=== PATIENT | female | born 1960 | race Caucasian/White ===

== ENCOUNTER 2024-11-11 05:36 | Observation (INO) | payer MEDICARE, MEDICAID ==
[2024-11-08 11:45] LABS: BASOPHILS % (AUTO) 0.5 % (0-1); EOSINOPHILS # (AUTO) 0.1 X10'3 (0-0.9); EOSINOPHILS % (AUTO) 2.4 % (0-6); LYMPHOCYTES # (AUTO) 1.7 X10'3 (1.1-4.8); LYMPHOCYTES % (AUTO) 34.1 % (21-51); MEAN CORPUSCULAR HEMOGLOBIN 33.9 PG (27.0-31.0); MEAN CORPUSCULAR HGB CONC 34.4 g/dL (33.0-36.5); MEAN CORPUSCULAR VOLUME 98.5 FL (78-98); MEAN PLATELET VOLUME 8.6 FL (7.4-10.4); MONOCYTES # (AUTO) 0.5 X10'3 (0-0.9); MONOCYTES % (AUTO) 9.2 % (2-12); NEUTROPHILS # (AUTO) 2.7 X10'3 (1.8-7.7); NEUTROPHILS % (AUTO) 53.8 % (42-75); PRE OP HEMATOCRIT 42.3 % (35.0-45.0); PRE OP HEMOGLOBIN 14.6 g/dL (12.0-16.0); PRE OP PLATELET COUNT 195 X10'3 (140-440); PRE OP WHITE BLOOD COUNT 4.9 10'3 (4.8-10.8); RED CELL DISTRIBUTION WIDTH 13.6 % (11.5-14.5)
[2024-11-08 11:50] LABS: PRE OP PROTIME 10.6 SECONDS (9.0-12.0)
[2024-11-08 12:08] LABS: ALBUMIN 4.2 G/DL (3.4-5.0); ALBUMIN/GLOBULIN RATIO 1.2 (1.1-1.5); ALKALINE PHOSPHATASE 105 IU/L (46-116); BLOOD UREA NITROGEN 16 MG/DL (7-18); BUN/CREATININE RATIO 20.5 (10.0-20.0); CALCIUM 9.2 MG/DL (8.5-10.1); CHLORIDE 108 MMOL/L (99-107); CREATININE 0.78 MG/DL (0.40-0.90); PRE OP ALT 78 U/L (30-65); PRE OP ANION GAP 12 (8-16); PRE OP AST 70 U/L (10-37); PRE OP BILIRUB, TOTAL 0.8 MG/DL (0.0-1.0); PRE OP GLUCOSE 95 MG/DL (70-104); PRE OP POTASSIUM 4.2 MMOL/L (3.4-5.1); PRE OP SODIUM 146 MMOL/L (135-145); TOTAL CARBON DIOXIDE 26.3 MMOL/L (24-32); TOTAL PROTEIN 7.8 G/DL (6.4-8.2); eGFR 74 ML/MIN
[2024-11-08 12:14] LABS: BILIRUBIN,URINE NEGATIVE (Neg); COLOR,URINE YELLOW (Yellow); GLUCOSE, URINE NEGATIVE (Neg); KETONES,URINE NEGATIVE (Neg); LEUKOCYTE ESTERASE ,URINE NEGATIVE (Neg); NITRITES, URINE NEGATIVE (Neg); OCCULT BLOOD,URINE NEGATIVE (Neg); PROTEIN,URINE NEGATIVE (Neg); UROBILINOGEN,URINE 0.2 E.U/dL (0.2-1.0)
[2024-11-08 12:33] LABS: UA COLLECTION TYPE CLN CATCH MIDSTREAM
[2024-11-08 12:34] LABS: CLARITY,URINE SLIGHTLY CLOUDY (Clear)
[2024-11-08 12:37] LABS: MUCUS STRANDS FEW /LPF (Neg); SQUAMOUS EPITHELIAL CELL,UR MODERATE /LPF (FEW)
[2024-11-08 12:38] LABS: BACTERIA,URINE FEW /HPF (Neg); RBC,URINE NONE SEEN /HPF (0-2); TRANSITIONAL EPI CELLS,URINE FEW /HPF; WBC,URINE NONE SEEN /HPF (0-4)
--- NOTE | 2024-11-08 13:33 | RADIOLOGY REPORT ---
DI CHEST,TWO VIEWS CLINICAL HISTORY: PREOP COMPARISON: None TECHNIQUE: Frontal and lateral view of the chest was obtained FINDINGS: Lines and Tubes: None Lungs: No focal consolidation. Pleura: No effusion. No pneumothorax. Cardiomediastinal contours: Unremarkable Bones: No acute osseous abnormality. IMPRESSION: No acute cardiopulmonary disease.
[2024-11-11] VITALS (26 sets, daily range): BP systolic 105–145; BP diastolic 54–86; PULSE 63–94; RESP 11–17; TEMP 97.2–97.4; O2SAT 89–97
[~2024-11-11] VITALS: Ht 157.5 cm; Wt 68.0 kg
[~2024-11-11 05:36] MED LIST: ALBU8HFA INH; ATOR20TA PO; DULO-31 PO; FENO145T38 PO; FOLI1TAB27 PO; MAGN200T5 PO; MELO-102 PO; METO-384 PO; MULT-1249 PO; OLAN20TA81 PO; OMEG-15 PO; ROPI2TAB53 PO
[2024-11-11] MEDS: ceFAZolin 2gm/dext,iso 50mL 50 ML IV ONE (05:51)
[2024-11-11] MEDS: DOCUMENT DATE & TIME OF BETA-BLOCKER PO ONE (05:51)
[2024-11-11] MEDS ORDERED: gelatin sponge, absorbable (Gelfoam 100) sponge TP ONE (07:05)
[2024-11-11] MEDS ORDERED: vancomycin 1,000mg inj ONE (07:05)
[2024-11-11] MEDS ORDERED: cloNIDine hcl/PF 100mcg/ml inj ONE (07:09)
[2024-11-11] MEDS ORDERED: fentaNYL/PF 50MCG/1 ML 2ML syringe ONE (07:12)
[2024-11-11] MEDS ORDERED: HYDROcodone/acetaminophen 5mg/325mg tablet PO PRN (07:15)
[2024-11-11] MEDS ORDERED: naloxone 0.4 mg/ml inj IV PRN (07:15)
[2024-11-11] MEDS ORDERED: acetaminophen 325mg tablet PO PRN (07:15)
[2024-11-11] MEDS ORDERED: magnesium hydroxide 30ml (MOM) UD suspension PO PRN (07:15)
[2024-11-11] MEDS ORDERED: PCA WASTE DOCUMENTATION 1 MG ML MC SCH (07:15)
[2024-11-11] MEDS ORDERED: diphenhydrAMINE 25mg capsule PO PRN (07:15)
[2024-11-11] MEDS ORDERED: ondansetron/PF 4mg/2ml inj IV PRN ×2 (07:15→09:35)
[2024-11-11] MEDS ORDERED: bisacodyl 10mg suppository rectal RC PRN (07:15)
[2024-11-11] MEDS ORDERED: dexamethasone sod phosphate 4mg/ml inj. ONE (07:53)
[2024-11-11] MEDS ORDERED: rocuronium 10mg/ml inj IV ONE (07:53)
[2024-11-11] MEDS ORDERED: ondansetron/PF 4mg/2ml inj ONE (07:53)
[2024-11-11] MEDS ORDERED: LIDOcaine 2% (20mg/ml) 5ml vial ONE (07:53)
[2024-11-11] MEDS ORDERED: ROPIVAcaine 0.5% (5mg/ml) 30ml vial ONE (07:53)
[2024-11-11] MEDS ORDERED: LIDOcaine 1%/PF 5ML 10 MG/ML VIAL ONE (07:53)
[2024-11-11] MEDS ORDERED: propofol inj 20 ML IV ONE (07:53)
[2024-11-11] MEDS ORDERED: midazolam 1 mg/ML 2ml injection ONE (07:53)
[2024-11-11] MEDS ORDERED: sevoflurane 250ml liquid IH ONE (07:54)
[2024-11-11] MEDS ORDERED: tranexamic acid 100mg/ml inj. ONE (07:56)
[2024-11-11] MEDS ORDERED: tranexamic acid inj. 1,000 MG in normal saline 100ml IV soln 90 ML IV ONE (08:00)
[2024-11-11] MEDS ORDERED: ePHEDrine 50MG/ML INJ. ONE (08:13)
[2024-11-11] MEDS ORDERED: hydrALAZINE 20mg/ml inj. IV PRN (09:35)
[2024-11-11] MEDS ORDERED: morphine 4 MG/ML inj SYRINge IV PRN (09:35)
[2024-11-11] MEDS ORDERED: proCHLORperazine 10 MG/2 ml inj IV PRN (09:35)
[2024-11-11] MEDS ORDERED: meperidine/PF 25mg/ml syringe IV PRN (09:35)
[2024-11-11] MEDS ORDERED: labetalol 20mg/4ml (5mg/ml) syringe IV PRN (09:35)
[2024-11-11] MEDS ORDERED: morphine 2 MG/ML inj. syringe IV PRN (09:35)
[2024-11-11] MEDS ORDERED: HYDROmorphone/PF 0.2 MG/ML SYRINGE IV PRN ×2 (09:35)
[2024-11-11] MEDS ORDERED: ringers solution, lacted 1,000 ML IV SCH (09:35)
[2024-11-11] MEDS: ipratropium/albuterol 3ml nebule IH ONE (09:55)
[2024-11-11] MEDS: acetaminophen 1,000mg/100ml IV 100 ML IV PRN (10:09)
--- NOTE | 2024-11-11 10:51 | RADIOLOGY REPORT ---
EXAM: DI SHOULDER, COMPLETE (MIN 2 VWS) CLINICAL INDICATION: post op TECHNIQUE: DI SHOULDER, COMPLETE (MIN 2 VWS) Comparison: None FINDINGS/IMPRESSION: There is no evidence of acute fracture or dislocation. Chronic right lateral 6th rib fracture. Right total shoulder arthroplasty. The alignment is anatomical. There is no radiopaque foreign body.
[2024-11-11] MEDS: tranexamic acid 1gm/0.7% sal. 100 ML IV ONE (12:00)
[2024-11-11] MEDS: ringers solution, lacted 1,000 ML IV SCH (12:00)
[2024-11-11] MEDS: famotidine 20mg tablet PO ONE (12:00)
[2024-11-11] MEDS ORDERED: ceFAZolin/D5W- 1GM premix 50 ML IV SCH (16:00)
--- NOTE | 2024-11-11 16:23 | OPERATIVE REPORT ---
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 Intact rotator cuff. Complications None Prosthetics\Implants used: Shoulder innovations size six inset 70 stem with a +0 tray and +0 polyethylene liner. A 33 diameter, plus three lateralized glenosphere was used. A 10 degree superiorly augmented base plate was used. Estimated Blood Loss: 100 cc Specimen Removed: Right humeral head Description of Procedure: Patient is brought to the operating. Placed in a supine position. Preoperative antibiotics of 2 g of Ancef and 1 g of TXA was given. General plus regional anesthesia was performed including a interscalene block. This was performed of the right shoulder. Patient was then positioned in a modified beach chair position. Bony prominences were well padded. Bilateral lower extremity SCDs were placed. The right upper extremity was prepped and draped in the usual sterile fashion. A time-out procedure was performed as per routine identifying the patient, site to be operated on, and procedure to be performed. Dr. Adan Piedra animal assistant on this surgery. Doctor Piedra is a animal assistant that I used frequently and he is very aware of my dissection techniques. His assistance with humeral exposure allowed for proper preparation and instrumentation. More importantly, he is very familiar with my glenoid retractor placement and this allowed excellent visualization of the glenoid. This helps with proper implant placement and also helps minimize complications. Lastly, he is very familiar with my subscapularis repair technique which requires multiple sutures to be passed in a certain order. I began with the right shoulder deltopectoral incision. Cephalic vein was identified and taken laterally with the deltoid. I developed the deltopectoral interval and subdeltoid space. Retractors were placed under the deltoid for excellent exposure of the proximal humerus. I identified the long head of the biceps and I tenodesed it to the upper border of the pectoralis major. I then resected the proximal portion of the biceps. Blunt dissection was performed under the conjoined tendon. A retractor was carefully placed after palpating the axillary nerve. Sutures were placed in the subscapularis and a subscapularis peel was performed. With progressive release of the inferior caps ule, I was able to dislocate the proximal humerus into the deltopectoral interval. Marginal osteophytes were identified and resected using a rongeur and osteotomes. I then identified the capsular reflexion. This was marked. I then made an anatomic neck cut at 132.5 of neck shaft inclination and approximately 20 of retroversion. Posterior osteophytes were removed. I then sounded the humeral canal up to a size 10. I then selected a size four broach which was too small. I went up to a size six broach for the inset 70 system. This fit fairly well. I then reamed for the humeral tray and placed a cut protector. I then moved onto the glenoid. A 360 degree soft tissue release was performed around the glenoid. This allowed me to resect glenoid labrum and residual biceps anchor. With careful dissection, I stayed directly on bone to minimize neurovascular injury. I then was able to place all my retractors directly on bone for excellent visualization. Care was taken to protect the neurovascular structures anteriorly and the axillary nerve inferiorly. Once I had good visualization, I referenced my 3D preoperative plan. Patient had about a 11 degree superior inclination deformity. So I used a 10 degree superior augment and tilted my hand down slightly. I did not correct much of her retroversion. I then placed my guide pin bicortically. Fluoroscopy was used to confirm good position of the guide pin. I then reamed for a 10 degree superiorly augmented base plate with the maximum correction essentially at about the 11:30 position. I then drilled for the center post. I then impacted a 10 degree superiorly augmented base plate with the maximum correction at about the 11:30 position. The base plate seated firmly. I then drilled for the center compression screw with excellent purchase. I placed three peripheral locking screws. The base plate was very stable. I then used a 33 diameter peripheral Reamer. Once this was done, I irrigated with IrriSept. I dried the Abdullahi taper. According to my 3D preope rative plan, I placed a 33 diameter, plus three lateralized glenosphere by impacting the taper, testing the taper, and then re impacting the taper. I then moved back to the humerus. A +0 tray was placed along with a +0 trial liner. Shoulder was reduced with a excellent positive reduction feel. No dislocation with a lateral Shuck maneuver. Stable range of motion was internal rotation to the belly, external rotation easily to 70 or 80, easy overhead motion. Abduction external rotation to about 100 and abduction internal rotation to 45. Dislocation required some effort. So I felt comfortable with this construct. Shoulder was irrigated with IrriSept. I then placed four suture tapes adjacent to the lesser tuberosity for my later subscapularis repair. Definitive implant was opened which was an inset 70 stem, size six. With a +0 humeral tray and +0 humeral liner. This was assembled on the back table in standard fashion. Once it was ready, I inserted the stem. I impacted it. It sat firmly. It was very stable with both axial and rotational stress. Shoulder was reduced with the same reduction feel. Final fluoroscopy images were taken and saved. I was happy with the construct. I then reduced the subscapularis and a double row subscapularis repair was performed. It was very stable. An axillary nerve tug test was performed and it was intact. I then irrigated the shoulder with IrriSept and then 3 L of pulse lavage irrigation. 1 g of vancomycin powder was placed adjacent to the implant. I then closed the deltopectoral interval with FiberWire suture. Deep layers were closed with 0 Vicryl suture, subcutaneous layers were closed with 2-0 Vicryl suture and skin was closed with 3-0 Stratafix suture. Final sponge and needle counts were correct. Wound was sealed with Dermabond. Sterile dressings were applied. Arm was protected in an shoulder abduction orthosis which was fit in the operating room. This was placed for the patient's proper safety and recovery after surgery and to help minimize complications. Patient was then sent to recovery in stable condition. Counts repoted as correct: Yes X-Ray findings: No Foreign body JULIÁN MCCURDY MD Nov 11, 2024 16:22
[2024-11-11] MEDS: potassium cl 20mEq in 1/2 NS 1,000 ML IV SCH (17:15)
[2024-11-11] MEDS: ceFAZolin/D5W- 1GM premix 50 ML IV SCH (19:07)
[2024-11-11] MEDS ORDERED: albuterol 2.5 MG/3 ML nebule NEB PRN (20:35)
[2024-11-11] MEDS: ROPINIRole 1mg tablet PO SCH (21:35)
[2024-11-11] MEDS: olanzapine 10mg tablet PO SCH (21:35)
[2024-11-12 05:30] LABS: ALANINE AMINOTRANSFERASE 59 U/L (12-78); ALBUMIN 3.1 G/DL (3.4-5.0); ALBUMIN/GLOBULIN RATIO 0.9 (1.1-1.5); ALKALINE PHOSPHATASE 76 IU/L (46-116); ANION GAP 9 (8-16); BILIRUBIN,TOTAL 0.4 MG/DL (0.1-1.0); BLOOD UREA NITROGEN 12 MG/DL (7-18); BUN/CREATININE RATIO 13.6 (10.0-20.0); CALCIUM 8.4 MG/DL (8.5-10.1); CHLORIDE 111 MMOL/L (99-107); CREATININE 0.88 MG/DL (0.40-0.90); GLUCOSE 124 MG/DL (70-104); SODIUM 144 MMOL/L (135-145); TOTAL CARBON DIOXIDE 23.9 MMOL/L (24-32); TOTAL PROTEIN 6.5 G/DL (6.4-8.2); eCRCL 51 ML/MIN; eGFR 65 ML/MIN
[2024-11-12 05:39] LABS: ASPARTATE AMINO TRANSFERASE 54 U/L (10-37); POTASSIUM 4.8 MMOL/L (3.5-5.1)
[2024-11-12 06:00] VITALS: BP 120/67; PULSE 74; RESP 16; TEMP 96.8; O2SAT 91
[2024-11-12 07:17] LABS: BASOPHILS % (AUTO) 0.2 % (0-1); EOSINOPHILS % (AUTO) 0 % (0-6); HEMOGLOBIN 12.7 g/dl (12.0-16.0); LYMPHOCYTES # (AUTO) 1.3 X10'3 (1.1-4.8); LYMPHOCYTES % (AUTO) 12.1 % (21-51); MEAN CORPUSCULAR HEMOGLOBIN 34.2 PG (27.0-31.0); MEAN CORPUSCULAR HGB CONC 34.3 g/dL (33.0-36.5); MEAN CORPUSCULAR VOLUME 99.8 FL (78-98); MEAN PLATELET VOLUME 9.1 FL (7.4-10.4); MONOCYTES # (AUTO) 0.8 X10'3 (0-0.9); MONOCYTES % (AUTO) 7.8 % (2-12); NEUTROPHILS # (AUTO) 8.4 X10'3 (1.8-7.7); NEUTROPHILS % (AUTO) 79.9 % (42-75); PLATELET COUNT 167 X10'3 (140-440); RED BLOOD COUNT 3.71 X10'6 (4.20-5.60); RED CELL DISTRIBUTION WIDTH 13.7 % (11.5-14.5); WHITE BLOOD COUNT 10.4 X10'3 (4.5-11.0)
--- NOTE | 2024-11-12 07:22 | PROGRESS NOTE ---
Progress Note Orthopedic Ortho Post Op Day #: 1 Follow Up Progress Note Postoperative day 1. Status post right reverse total shoulder arthroplasty and biceps tenodesis Central Line/PICC still needed: N\A Adler Catheter still needed?: N\A Subjective Patient states her right shoulder pain is reasonably controlled. No overnight issues. Objective Vital Signs Date Time Temp Pulse Resp B/P (MAP) Pulse Ox O2 Delivery O2 Flow Rate FiO2 11/11/24 20:00 Nasal Cannula 2.0 11/11/24 15:45 78 123/68 (86) 90 11/11/24 12:00 97.4 13 32 Result Diagram: 11/08/24 1125 11/12/24 0455 Alert and Oreinted x4, Appropriate, Vital signs are stable Objective Examination of the right shoulder shows no deformity. Dressings are intact. No strike through. Axillary nerve is intact to light touch. 2+ radial pulse. Her median, radial, and ulnar nerve motor and sensory functions are completely intact with specific testing. Sling is in place. Lab Results comments Patient's complete metabolic profile is acceptable for postoperative day 1. Her morning CBC is still pending. Other Results Postoperative x-rays were reviewed. No visible complications. No fractures or dislocations. Joint alignment and implant alignment all look good. Problem/Assessment/Plan Assessment\Plan: Doing Well, Anticipate disch to home Patient is doing well. Recovering as expected. Patient has been seen and cleared by Physical therapy. She has been taught pendulums and passive range of motion. No shoulder external rotation past neutral. Patient should have completed her IV antibiotics. Her morning labs are pending and I still need to review her CBC. As long as that looks okay, she should be able to be discharged home later today with the following instructions: 1. Right shoulder sling at all times 2. No right shoulder active range of motion. She is allowed pendulums and passive range of motion only. 3. Strict nonweightbearing right upper extremity 4. No shoulder external rotation past neutral 5. Patient should move her elbow, wrist, and hand. 6. Patient may remove her dressings tomorrow. If they are clean, dry, and the incision is not draining, she may shower. 7. Patient should resume her normal medications 8. Patient has pain medications prescribed 9. Patient should take a regular aspirin one tablet daily for four weeks as DVT prophylaxis. She has no history of stomach ulcers or trouble taking aspirin 10. Patient should start outpatient therapy as instructed Patient has printed instructions that will go home with her. She has my personal contact information if she has any questions or issues. DONYA MCCURDY MD Nov 12, 2024 07:22
--- NOTE | 2024-11-12 07:25 | DISCHARGE SUMMARY ---
Discharge Summary Providers to ~ Discharge Summary Admission Diagnosis: R shoulder OA Hospital Course DATE OF ADMISSION: 11/11/2024 DATE OF DISCHARGE: 11/12/2024 Discharge Diagnosis\Comment: Right shoulder osteoarthritis Operations\Procedures: On 11/11/2024, patient underwent a right reverse total shoulder arthroplasty and biceps tenodesis Consultants: None Complications: None Condition on DC: Stable Discharge Summary: Patient underwent surgery on 11/11/2024 for a right reverse total shoulder arthroplasty and biceps tenodesis without complications. Patient was admitted for routine postoperative care. She received postoperative antibiotics. Pain was reasonably controlled with a regional block followed by oral medications. Patient was seen and cleared by Physical therapy on postoperative day 1. Labs were reviewed. Vital signs remained stable. Patient was seen and cleared for safe discharge by Physical therapy. She was taught pendulums and passive range of motion only. Patient was deemed stable for discharge on postoperative day 1. With the following instructions: 1. Right shoulder sling at all times 2. No right shoulder active range of motion. She is allowed pendulums and passive range of motion only. 3. Strict nonweightbearing right upper extremity 4. No shoulder external rotation past neutral 5. Patient should move her elbow, wrist, and hand. 6. Patient may remove her dressings tomorrow. If they are clean, dry, and the incision is not draining, she may shower. 7. Patient should resume her normal medications 8. Patient has pain medications prescribed 9. Patient should take a regular aspirin one tablet daily for four weeks as DVT prophylaxis. She has no history of stomach ulcers or trouble taking aspirin 10. Patient should start outpatient therapy as instructed Patient has printed instructions that will go home with her. She has my personal contact information if she has any questions or issues. *Problems/Diagnosis: (1) Primary osteoarthritis, right shoulder Status: Resolved Assessment & Plan: Assessment: Status post right reverse total shoulder arthroplasty secondary to right shoulder osteoarthritis Plan: See above discharge summary. See above plan. Total Time Spent on D/C: Up to 30 Minutes DONYA MCCURDY MD Nov 12, 2024 07:25
[2024-11-12] MEDS: HYDROcodone/acetaminophen 5mg/325mg tablet PO PRN (07:59)
[2024-11-12] MEDS: duloxetine 30mg CAPSULE.DR PO SCH (07:59)
[2024-11-12] MEDS: folic acid 1mg tablet PO SCH (07:59)
[2024-11-12] MEDS: aspirin 325mg tablet PO SCH (07:59)
[2024-11-12] MEDS: atorvastatin 20mg tablet PO SCH (07:59)
[2024-11-12 08:00] VITALS: RESP 16; O2SAT 91
[2024-11-12] MEDS: OMEGA-3/DHA/EPA/FISH OIL 1 EACH CAPSULE.DR PO SCH (08:00)
[2024-11-12] MEDS: metoprolol succinate 25mg (24-HOUR) SR. Tablet PO SCH (08:00)
[2024-11-12] MEDS: magnesium oxide 400mg tablet PO SCH (08:00)
[2024-11-12] MEDS: MELOXICAM 7.5 MG TABLET PO SCH (08:00)
[2024-11-12] MEDS: multivitamins, therapeutics tablet PO SCH (08:00)
[2024-11-12] MEDS: fenofibrate 145mg tablet PO SCH (08:00)
[2024-11-12 10:00] VITALS: BP 145/76; PULSE 85; RESP 16; TEMP 97; O2SAT 96
== END 2024-11-12 11:30 | disposition home or self-care (01) ==
LOC: PAS IN 05:36 → UNDOADMIN 05:36 → PAS IN 07:21 → INTOOBSV 07:21 → ORTHO 4S 12:15
PROVIDERS: ADMIT Specialist; ATTEND Specialist
DX: M19.011 Primary osteoarthritis, right shoulder (principal); M25.511 Pain in right shoulder; R79.1 Abnormal coagulation profile; Z79.899 Other long term (current) drug therapy; Z98.890 Other specified postprocedural states
CPT/HCPCS: 23472; 71046; 73030; 76000; 80053; 81001; 82948; 85610; 85730; 86885; 86900; 86901; 94640; 94760; 96365; 96366; 97161; A4565; A4615; A4618; A7000; C1776; G0378; J2710; J3480; J3490; J7120; 36415; 85025; 87081; 97110; 97530; A6449; A6455; J0131; J0690; J0735; J1100; J2003; J2250; J2405; J2704; J2795; J3010; J3370